=== PATIENT | female | born 1950 | race African-American/Black ===

== ENCOUNTER 2021-12-20 12:38 | Inpatient (IN) | payer BC, MEDICARE ==
[~2021-12-20] VITALS: Ht 167.6 cm; Wt 111.1 kg
[2021-12-20 15:35] LABS: BASOPHILS % 0.7 % (0.0-2.0); EOSINOPHILS % 0.7 % (0.0-5.0); LYMPHOCYTES % 16.3 % (20.0-50.0); MEAN CORPUSCULAR HEMOGLOBIN 20.4 pg (28.0-32.0); MEAN CORPUSCULAR VOLUME 71.1 fL (81.0-99.0); MEAN PLATELET VOLUME 8.8 fl (7.4-10.4); NEUTROPHILS % 76.3 % (40.0-76.0); PLATELET 57 x1000/uL (130-400); RED BLOOD CELL COUNT 2.67 mill/uL (4.2-5.4); RED CELL DISTRIBUTION WIDTH 20.4 % (11.6-14.6)
[2021-12-20 15:38] LABS: CHLORIDE 109 mEq/L (98-107)
[2021-12-20 15:46] LABS: HEMOGLOBIN. 5.4 g/dL (12.0-16.0)
[2021-12-20] MEDS ORDERED: GUAIFENESIN 200MG/10ML SUGAR FREE UDC PO PRN (20:15)
[2021-12-20] MEDS ORDERED: ONDANSETRON HCL 4MG/2ML INJ IV PRN (20:15)
[2021-12-20] MEDS ORDERED: MAGNESIUM/ALUMINUM HYDROXIDE/SIMETHICONE 30ML UDC PO PRN (20:15)
[2021-12-20] MEDS ORDERED: NA PHOS,M-B/NA PHOS,DI-BA ENEMA 118ML PR PRN (20:15)
[2021-12-20] MEDS: DEXT 5%/LACTATED RINGERS 1,000 ML IV SCH (20:15)
[2021-12-20] MEDS ORDERED: DOCUSATE SODIUM 100MG CAPSULE PO PRN (20:15)
[2021-12-20] MEDS ORDERED: ACETAMINOPHEN 325MG TABLET PO PRN (20:15)
[2021-12-20] MEDS ORDERED: PANTOPRAZOLE 80 MG in SODIUM CHLORIDE 0.9% 100 ML IV SCH (20:30)
[2021-12-20] MEDS: PANTOPRAZOLE 80 MG in SODIUM CHLORIDE 0.9% 100 ML IV SCH (20:30)
[2021-12-20 20:45] LABS: T4 FREE 0.94 ng/dL (0.76-1.46)
[2021-12-20 21:34] LABS: VITAMIN B12 SERUM 430 pg/mL (211-911)
[2021-12-20 21:47] LABS: FOLIC ACID (FOLATE) SERUM > 20.00 ng/mL (>5.38)
[2021-12-20] MEDS ORDERED: AMLO10TA80 PO (23:35)
[2021-12-20] MEDS ORDERED: OXYC1TAB12 PO (23:35)
[2021-12-21] VITALS (9 sets, daily range): BP systolic 144–168; BP diastolic 61–78
[2021-12-21] MEDS ORDERED: DEXT 5%/LACTATED RINGERS 1,000 ML IV SCH (02:15)
[2021-12-21] MEDS: DEXT 5%/LACTATED RINGERS 1,000 ML IV SCH ×2 (03:23→22:06)
[2021-12-21 03:30] LABS: PARTIAL THROMBOPLASTIN TIME 24.3 sec (23.4-31.0); PROTHROMBIN TIME 10.6 sec (9.6-11.0)
[2021-12-21 06:51] LABS: BASOPHILS % 0.5 % (0.0-2.0); LYMPHOCYTES % 26.8 % (20.0-50.0); MEAN CORPUSCULAR HEMOGLOBIN 21.8 pg (28.0-32.0); MEAN CORPUSCULAR VOLUME 73.2 fL (81.0-99.0); MEAN PLATELET VOLUME 9.2 fl (7.4-10.4); MONOCYTES % 6.5 % (2.0-8.0); NEUTROPHILS % 65.2 % (40.0-76.0); PLATELET 57 x1000/uL (130-400); RED BLOOD CELL COUNT 2.74 mill/uL (4.2-5.4); RED CELL DISTRIBUTION WIDTH 21.7 % (11.6-14.6)
[2021-12-21 10:58] LABS: CHLORIDE 112 mEq/L (98-107)
[2021-12-21 11:09] LABS: PHOSPHORUS 3.2 mg/dL (2.5-4.9)
[2021-12-21] MEDS: ACETAMINOPHEN 325MG TABLET PO PRN ×2 (14:37→22:02)
[2021-12-21] MEDS: PANTOPRAZOLE 80 MG in SODIUM CHLORIDE 0.9% 100 ML IV SCH ×2 (18:41→22:04)
[2021-12-21 20:26] LABS: HEMATOCRIT 23.2 % (36.0-48.0)
[2021-12-21 20:39] LABS: HEMOGLOBIN 6.9 g/dL (12.0-16.0)
[2021-12-22] VITALS (9 sets, daily range): BP systolic 153–196; BP diastolic 74–97
[2021-12-22] MEDS: ACETAMINOPHEN 325MG TABLET PO PRN ×3 (04:39→21:44)
[2021-12-22] MEDS: PANTOPRAZOLE 80 MG in SODIUM CHLORIDE 0.9% 100 ML IV SCH ×3 (04:39→21:44)
[2021-12-22 07:44] LABS: BASOPHILS % 0.6 % (0.0-2.0); EOSINOPHILS % 5.2 % (0.0-5.0); LYMPHOCYTES % 22.1 % (20.0-50.0); MEAN CORPUSCULAR HEMOGLOBIN 22.6 pg (28.0-32.0); MEAN CORPUSCULAR VOLUME 75.3 fL (81.0-99.0); MEAN PLATELET VOLUME 8.8 fl (7.4-10.4); MONOCYTES % 7.2 % (2.0-8.0); NEUTROPHILS % 64.9 % (40.0-76.0); PLATELET 55 x1000/uL (130-400); RED BLOOD CELL COUNT 3.03 mill/uL (4.2-5.4); RED CELL DISTRIBUTION WIDTH 22.2 % (11.6-14.6)
[2021-12-22 07:48] LABS: PROTHROMBIN TIME 10.8 sec (9.6-11.0)
[2021-12-22 08:37] LABS: HEMATOCRIT. 22.8 % (36.0-48.0); HEMOGLOBIN. 6.9 g/dL (12.0-16.0)
[2021-12-22 10:54] LABS: PHOSPHORUS 3.1 mg/dL (2.5-4.9)
[2021-12-22] MEDS: DEXT 5%/LACTATED RINGERS 1,000 ML IV SCH (12:33)
[2021-12-22] MEDS ORDERED: SORBITOL 70% SOLN 30ML PO NR ×2 (13:15→17:30)
[2021-12-22] MEDS ORDERED: POTASSIUM CHLORIDE 20MEQ/PACKET PO NR (13:15)
[2021-12-22 14:20] LABS: PLATELET ESTIMATE MARKEDLY DECREASED
[2021-12-22 22:53] LABS: HEMATOCRIT 32.1 % (36.0-48.0); HEMOGLOBIN 10.1 g/dL (12.0-16.0)
[2021-12-23] VITALS: BP 173/92
[2021-12-23] MEDS: DEXT 5%/LACTATED RINGERS 1,000 ML IV SCH ×2 (00:36→14:55)
[2021-12-23] MEDS: CLONIDINE 0.1MG TABLET PO PRN ×2 (00:36→22:15)
[2021-12-23 04:00] VITALS: BP 125/70
[2021-12-23 06:50] LABS: BASOPHILS % 0.5 % (0.0-2.0); EOSINOPHILS % 4.9 % (0.0-5.0); HEMATOCRIT. 26.4 % (36.0-48.0); LYMPHOCYTES % 21.6 % (20.0-50.0); MEAN CORPUSCULAR HEMOGLOBIN 24.1 pg (28.0-32.0); MEAN CORPUSCULAR VOLUME 75.6 fL (81.0-99.0); MEAN PLATELET VOLUME 8.5 fl (7.4-10.4); MONOCYTES % 7.2 % (2.0-8.0); NEUTROPHILS % 65.8 % (40.0-76.0); PLATELET 58 x1000/uL (130-400); RED CELL DISTRIBUTION WIDTH 21.7 % (11.6-14.6)
[2021-12-23 07:01] LABS: HEMOGLOBIN. 8.4 g/dL (12.0-16.0)
[2021-12-23 07:33] LABS: PHOSPHORUS 3.4 mg/dL (2.5-4.9)
[2021-12-23 08:00] VITALS: BP 132/80
[2021-12-23] MEDS: PANTOPRAZOLE 80 MG in SODIUM CHLORIDE 0.9% 100 ML IV SCH ×2 (10:21→19:03)
[2021-12-23] MEDS ORDERED: SORBITOL 70% SOLN 30ML PO NR ×2 (10:45→18:00)
[2021-12-23 12:00] VITALS: BP 149/59
[2021-12-23] MEDS ORDERED: POTASSIUM CHLORIDE 20MEQ/PACKET PO NR (15:15)
[2021-12-23 16:00] VITALS: BP 164/79
[2021-12-23] MEDS: IRON SUCROSE COMPLEX 100 MG/5 ML ML IV SCH (18:28)
[2021-12-23 20:00] VITALS: BP 161/104
[2021-12-23] MEDS: ACETAMINOPHEN 325MG TABLET PO PRN (22:30)
[2021-12-24] VITALS: BP 139/82
[2021-12-24] MEDS: DEXT 5%/LACTATED RINGERS 1,000 ML IV SCH ×2 (03:19→17:05)
[2021-12-24 03:29] LABS: BASOPHILS % 0.5 % (0.0-2.0); EOSINOPHILS % 3.2 % (0.0-5.0); HEMATOCRIT. 28.1 % (36.0-48.0); HEMOGLOBIN. 8.7 g/dL (12.0-16.0); LYMPHOCYTES % 15.6 % (20.0-50.0); MEAN CORPUSCULAR HEMOGLOBIN 23.6 pg (28.0-32.0); MEAN CORPUSCULAR VOLUME 76.2 fL (81.0-99.0); MEAN PLATELET VOLUME 8.7 fl (7.4-10.4); MONOCYTES % 6.7 % (2.0-8.0); PLATELET 56 x1000/uL (130-400); RED BLOOD CELL COUNT 3.69 mill/uL (4.2-5.4)
[2021-12-24 03:37] LABS: PROTHROMBIN TIME 11.1 sec (9.6-11.0)
[2021-12-24] MEDS: PANTOPRAZOLE 80 MG in SODIUM CHLORIDE 0.9% 100 ML IV SCH ×2 (03:55→14:30)
[2021-12-24 04:00] VITALS: BP 143/86
[2021-12-24 04:27] LABS: PHOSPHORUS 3.4 mg/dL (2.5-4.9)
[2021-12-24 08:00] VITALS: BP 152/80
[2021-12-24 12:00] VITALS: BP_SYST 161; BP_SYST 179; BP_DIAS 86; BP_DIAS 94
[2021-12-24] MEDS ORDERED: HYDRALAZINE 20MG/ML VIAL IV PRN (13:00)
[2021-12-24] MEDS ORDERED: PROPOFOL 200MG/20ML VIAL IV ONE ×2 (14:22→14:38)
[2021-12-24] MEDS: ACETAMINOPHEN 325MG TABLET PO PRN ×2 (15:41→22:49)
[2021-12-24] MEDS: IRON SUCROSE COMPLEX 100 MG/5 ML ML IV SCH (17:03)
[2021-12-24] MEDS: FERROUS SULFATE 325MG TABLET PO SCH (17:16)
[2021-12-24 20:00] VITALS: BP 157/73
[2021-12-25] VITALS: BP 141/72
[2021-12-25] MEDS: PANTOPRAZOLE 80 MG in SODIUM CHLORIDE 0.9% 100 ML IV SCH (00:19)
[2021-12-25 04:00] VITALS: BP 127/67
[2021-12-25] MEDS: DEXT 5%/LACTATED RINGERS 1,000 ML IV SCH (06:01)
[2021-12-25 06:29] LABS: BASOPHILS % 0.5 % (0.0-2.0); EOSINOPHILS % 2.9 % (0.0-5.0); HEMATOCRIT. 26.5 % (36.0-48.0); HEMOGLOBIN. 8.5 g/dL (12.0-16.0); LYMPHOCYTES % 18.1 % (20.0-50.0); MEAN CORPUSCULAR HEMOGLOBIN 24.2 pg (28.0-32.0); MEAN CORPUSCULAR VOLUME 75.5 fL (81.0-99.0); MONOCYTES % 6.5 % (2.0-8.0); RED BLOOD CELL COUNT 3.51 mill/uL (4.2-5.4); RED CELL DISTRIBUTION WIDTH 22.4 % (11.6-14.6)
[2021-12-25 08:00] VITALS: BP 148/86
[2021-12-25 08:21] LABS: PHOSPHORUS 3.5 mg/dL (2.5-4.9)
[2021-12-25] MEDS: FERROUS SULFATE 325MG TABLET PO SCH (09:12)
[2021-12-25 09:48] LABS: MEAN PLATELET VOLUME 8.7 fl (7.4-10.4)
[2021-12-25 09:50] LABS: PLATELET 48 x1000/uL (130-400)
[2021-12-25] MEDS ORDERED: POTASSIUM CHLORIDE 20MEQ/PACKET PO SCH (10:00)
[2021-12-25] MEDS ORDERED: FERR325T6 MT (10:02)
[2021-12-25 11:29] VITALS: BP 148/86
[2021-12-25 12:00] VITALS: BP 167/100
== END 2021-12-25 15:10 | disposition home or self-care (01) | DRG 377 ==
LOC: ER 12:41 → 7WST 19:20 → EDBEDREQTM 19:38 → EDBEDREQ 19:38 → ENRESERV 20:22
PROVIDERS: ADMIT Internal Medicine; ATTEND Internal Medicine
PROC: 30233N1 Transfusion of Nonautologous Red Blood Cells into Peripheral Vein, Percutaneous Approach (ICD-10-PCS; principal; 2021-12-20)
PROC: 0DJ08ZZ Inspection of Upper Intestinal Tract, Via Natural or Artificial Opening Endoscopic (ICD-10-PCS; 2021-12-24)
PROC: 0DJD8ZZ Inspection of Lower Intestinal Tract, Via Natural or Artificial Opening Endoscopic (ICD-10-PCS; 2021-12-24)
DX: K57.31 Diverticulosis of large intestine without perforation or abscess with bleeding (principal); D66 Hereditary factor VIII deficiency; D62 Acute posthemorrhagic anemia; D50.9 Iron deficiency anemia, unspecified; J44.9 Chronic obstructive pulmonary disease, unspecified; I10 Essential (primary) hypertension; R79.89 Other specified abnormal findings of blood chemistry; E87.8 Other disorders of electrolyte and fluid balance, not elsewhere classified; R73.03 Prediabetes; D69.6 Thrombocytopenia, unspecified; K44.9 Diaphragmatic hernia without obstruction or gangrene; Z88.2 Allergy status to sulfonamides; Z86.73 Personal history of transient ischemic attack (TIA), and cerebral infarction without residual deficits; Z83.2 Family history of diseases of the blood and blood-forming organs and certain disorders involving the immune mechanism; Z82.49 Family history of ischemic heart disease and other diseases of the circulatory system
CPT/HCPCS: 36415; 71045; 80048; 80053; 80320; 82270; 82607; 82728; 82746; 83036; 83540; 83550; 83735; 83880; 84100; 84439; 84443; 84484; 85014; 85018; 85025; 85044; 86850; 86900; 86920; 87426; 88305; 93005; 93306; 93970; 99285; A6261; C9113; J0360; J2405; J2704; J7050; P9016; G0480

== ENCOUNTER 2024-11-26 04:21 | Emergency (ER) | payer MEDICARE ==
[~2024-11-26] VITALS: Ht 170.2 cm; Wt 86.0 kg
[~2024-11-26 04:21] MED LIST: AMLO10TA80 PO; FERR325T6 MT
[2024-11-26 04:26] VITALS: O2SAT 99
[2024-11-26] MEDS: ACETAMINOPHEN 325MG TABLET PO ONE (06:30)
[2024-11-26] MEDS: TETANUS, DIPHTHERIA, PERTUSSIS VAC/PF 0.5ML (>10YR OLD) IM ONE (06:30)
[2024-11-26 07:45] VITALS: BP 164/88; PULSE 63; RESP 18; TEMP 37; O2SAT 99
== END 2024-11-26 07:45 | disposition home or self-care (01) ==
LOC: ER 04:21
DX: S00.12XA Contusion of left eyelid and periocular area, initial encounter (principal); Z88.0 Allergy status to penicillin; Z88.2 Allergy status to sulfonamides; Z88.6 Allergy status to analgesic agent; X58.XXXA Exposure to other specified factors, initial encounter; Y93.89 Activity, other specified; Y92.89 Other specified places as the place of occurrence of the external cause; Y99.8 Other external cause status
CPT/HCPCS: 70486; 90471; 90715; 99285